=== PATIENT | male | born 1935 | race Caucasian/White ===

== ENCOUNTER → 2016-06-26 | Outpatient (CLI) | payer OTHER ==
[~2016-06-26] MED LIST: AMITRIPTYLINE H50 MG PO; AMITRYPTYLINE PO; ASPIRIN PO; COUMADIN PO; COUMADIN5 MG PO; GABAPENTIN300 M2 PO; LISINOPRIL PO; LOVENOX SUBQ; METOPROLOL TAR100 MG PO; MULTI VITAMIN1 EACH PO; MULTI-DAY VITAM1 TAB PO; PANTOPRAZOLE SO40 MG PO; SENNA PO; SIMVASTATIN40 MG PO; TOPROL XL PO; WALMART PHARMACY; ZOCOR PO
--- NOTE | ~2016-06-26 | CT57 ---
[facility] A Service of [facility] & [facility] RADIOLOGY TEXT RESULTS PATIENT: ARISTIDES ENRIQUE LOCATION: [facility] : 39 UNIT #: [id number] AGE: [address]: VONDA LOPEZ MD SEX: M ORDER DR: [id number] [address] [address] [id number] O MR#: [id number] Acc #: [id number] NAME: ARISTIDES ENRIQUE : 1935 SEX: M STUDY DATE/TIME: 06/26/2016 12:23 UNIT: [facility] ROOM: STUDY DESCRIPTION: CT Chest Wo Cont Attending Physician: Shi Lopez M.D. Referring Physician: Shi Lopez M.D. Ordering Physician: Shi Lopez M.D. Primary Care Physician: Shi Lopez M.D. MEDICAL IMAGING REPORT This report is preliminary unless electronic signature is present. EXAM CT chest without contrast 06/26/2016 INDICATIONS 80-year-old male with followup of lung nodule. TECHNIQUE CT of the chest was performed without contrast. Coronal and sagittal reformatted images were obtained. This CT exam was performed with one or more of the following radiation dose reduction techniques: automatic exposure control, adjustment of mA and/or kV according to patient size, and iterative reconstruction. COMPARISON STUDIES Comparison with outside chest CT from 11/18/2015 FINDINGS Stable biapical scarring. Stable scarring in the upper lobes elsewhere, left greater than right. There is multifocal tree-in-bud nodularity. This is greatest within the right lung and is worse compared with the prior study. There is no dense consolidation. There are mildly enlarged mediastinal lymph nodes which are likely reactive. No pleural effusion. Coronary artery calcifications. Small hiatal hernia. Limited imaging of the upper abdomen demonstrates cholecystectomy. The bone windows are unremarkable. IMPRESSION 1. There has been development of multifocal tree-in-bud nodularity mainly within the right lung. This suggests infectious or inflammatory small airways disease process. Recommend follow up chest CT in 2-3 months to document clearing. 2. Elsewhere in the lungs there is stable areas of scarring. STS. [facility] A Service of [facility] & [facility] RADIOLOGY TEXT RESULTS PATIENT: ARISTIDES ENRIQUE LOCATION: [facility] : 37 UNIT #: [id number] AGE: [address]: VONDA LOPEZ MD SEX: M ORDER DR: 3. Small hiatal hernia. 4. Mildly prominent mediastinal lymph nodes which are likely reactive. Dictated by... Red Santos M.D. THIS IS AN ELECTRONICALLY VERIFIED REPORT Red Santos M.D. at 06/26/2016 5:03 PM Lázaro TD: 06/26/2016 15:24 JOB #: [id number] MEDICAL IMAGING REPORT Page 1 of 1
== END | disposition home or self-care (01) ==
LOC: SCT 12:01
DX: R91.8 Other nonspecific abnormal finding of lung field (principal); J98.4 Other disorders of lung; K44.9 Diaphragmatic hernia without obstruction or gangrene
CPT/HCPCS: 71250

== ENCOUNTER → 2016-08-18 | Outpatient (CLI) | payer OTHER ==
--- NOTE | ~2016-08-18 | CT57 ---
[facility] A Service of [facility] & [facility] RADIOLOGY TEXT RESULTS PATIENT: ARISTIDES ENRIQUE LOCATION: [facility] : 37 UNIT #: [id number] AGE: [address]: VONDA LOPEZ MD SEX: M ORDER DR: [id number] [address] [address] [id number] O MR#: [id number] Acc #: [id number] NAME: ARISTIDES ENRIQUE : 1935 SEX: M STUDY DATE/TIME: 08/18/2016 11:20 UNIT: [facility] ROOM: STUDY DESCRIPTION: CT Chest Wo Cont Attending Physician: Shi Lopez M.D. Referring Physician: Shi Lopez M.D. Ordering Physician: Shi Lopez M.D. Primary Care Physician: Shi Lopez M.D. MEDICAL IMAGING REPORT This report is preliminary unless electronic signature is present. EXAM CT chest without contrast, 08/18/2016. HISTORY 80-year-old male for followup abnormal CT performed June 2016. Nodularity on the right lung. COMPARISON CT chest without contrast 06/26/2016, 02/05/2006. CT chest with contrast performed at [facility], 11/18/2015. PROCEDURE 5-mm noncontrast axial images through the chest. Sagittal and coronal reformatted images were obtained. This CT exam was performed with one or more of the following radiation dose reduction techniques: automatic exposure control, adjustment of mA and/or kV according to patient size, and iterative reconstruction. FINDINGS Extensive tree-in-bud nodular densities are scattered throughout the right lung, greatest within the right upper lobe inferiorly. Overall, findings appear improved, particularly within the right lower lobe, compared to the 06/26/2016 examination. A new 8-mm nodular density has developed in the anteroinferior right lower lobe (series 5, image 26), favored to represent benign infectious or inflammatory etiology. Emphysematous changes are present. Chronic biapical scarring unchanged. Prominent mediastinal lymph nodes, including an upper pretracheal node measuring 1 cm short axis, right lower paratracheal node measuring approximately 1.3 cm short axis, appears very similar to the outside CT from 11/18/2015, and benign reactive inflammatory changes are favored. STS. [facility] A Service of [facility] & [facility] RADIOLOGY TEXT RESULTS PATIENT: ARISTIDES ENRIQUE LOCATION: [facility] : 39 UNIT #: [id number] AGE: [address]: VONDA LOPEZ MD SEX: M ORDER DR: Mild coronary artery calcifications are present. There is a patulous lower thoracic esophagus, with surgical changes at the esophagogastric junction. Cholecystectomy. No pericardial effusion or pleural effusion. Small midline upper abdominal hernia containing only omental fat. Tiny nonobstructing bilateral renal stones. Mild chronic-appearing compression deformity of L1. IMPRESSION 1. Diffuse tree-in-bud nodular densities are scattered within the right lung and appear improved, particularly within the superior segment right lower lobe, compared to the previous CT from 06/26/2016. A new 8-mm nodule has developed in the anteroinferior right upper lobe. Benign infectious or inflammatory etiology is once again favored. Findings could represent changes of small airways infectious or inflammatory change/bronchitis. Certainly, microaspiration could give a similar appearance, as well. Consider additional CT chest followup within 4-6 months. 2. Emphysematous changes with stable biapical scarring. 3. Mildly prominent mediastinal lymph nodes appear stable since the outside CT chest from 11/18/2015, favoring benign and benign reactive adenopathy is favored. 4. Surgical changes of the stomach, cholecystectomy. 5. Ventral hernia containing only omental fat. 6. Nonobstructing bilateral renal stones. 7. Mild chronic L1 compression deformity. Dictated by... Ashley Reese M.D. THIS IS AN ELECTRONICALLY VERIFIED REPORT Ashley Reese M.D. at 08/19/2016 9:41 AM JULITO/luisito TD: 08/18/2016 15:42 JOB #: [id number] MEDICAL IMAGING REPORT Page 1 of 1
== END | disposition home or self-care (01) ==
LOC: SCT 11:03
DX: R91.8 Other nonspecific abnormal finding of lung field (principal); J98.4 Other disorders of lung; R91.1 Solitary pulmonary nodule; K43.9 Ventral hernia without obstruction or gangrene; N20.0 Calculus of kidney; G95.20 Unspecified cord compression; Z90.49 Acquired absence of other specified parts of digestive tract; Z98.890 Other specified postprocedural states
CPT/HCPCS: 71250

== ENCOUNTER → 2016-12-23 | Outpatient (CLI) | payer MEDICARE ==
--- NOTE | ~2016-12-23 | CT57 ---
[facility]. [facility] A Service of [facility] & [facility] RADIOLOGY TEXT RESULTS PATIENT: ARISTIDES ENRIQUE LOCATION: [facility] : 39 UNIT #: [id number] AGE: [address]: VONDA LOPEZ MD SEX: M ORDER DR: [id number] [address] [address] [id number] O MR#: [id number] Acc #: [id number] NAME: ARISTIDES ENRIQUE : 1935 SEX: M STUDY DATE/TIME: 12/23/2016 8:01 UNIT: [facility] ROOM: STUDY DESCRIPTION: CT Chest Wo Cont Attending Physician: Vonda Lopez M.D. Referring Physician: Vonda Lopez M.D. Ordering Physician: Shi Lopez M.D. Primary Care Physician: Vonda Lopez M.D. MEDICAL IMAGING REPORT This report is preliminary unless electronic signature is present. EXAM CT of the chest without contrast. INDICATIONS Follow up 8 mm nodule right upper lobe. TECHNIQUE CT chest performed without contrast. Coronal and sagittal reformatted images were obtained. This CT exam was performed with one or more of the following radiation dose reduction techniques: Automatic exposure control, adjustment of mA and/or kV according to patient size, and iterative reconstruction. COMPARISON 08/18/2016. FINDINGS The previously noted 8 mm nodule is no longer present. However there are multiple additional nodules present, mainly in a tree-in-bud configuration located within the right upper lobe which has developed since the previous study. Stable biapical scarring. Stable linear scarring or atelectasis in the periphery of the left upper lobe. Stable micronodule left lower lobe on image 44. New scattered tree-in-bud nodularity in the right lower lobe as well as a right middle lobe. Stable mildly prominent mediastinal lymph nodes. Small hiatal hernia. Coronary artery calcification. No pleural effusion. Limited imaging in the upper abdomen shows scattered tiny nonobstructing stones in the visualized portion of the right kidney. Bone windows are unremarkable. IMPRESSION 1. The previously noted 8 mm nodule in the right upper lobe has resolved. 2. There has been interval development of multifocal tree-in-bud nodularity in the right lung mainly within the right upper lobe and STS. [facility] A Service of [facility] RADIOLOGY TEXT RESULTS PATIENT: ARISTIDES ENRIQUE LOCATION: [facility] : 39 UNIT #: [id number] AGE: [address]: VONDA LOPEZ MD SEX: M ORDER DR: the findings are most suggestive of an infectious or inflammatory process. Short-interval followup to clearing is recommended. This could be performed in 2-3 months to document clearing. Dictated by... Red Santos M.D. THIS IS AN ELECTRONICALLY VERIFIED REPORT Red Santos M.D. at 12/24/2016 2:47 PM REINIER/shagufta TD: 12/23/2016 09:56 JOB #: [id number] MEDICAL IMAGING REPORT Page 1 of 1
== END | disposition home or self-care (01) ==
LOC: SCT 07:46
DX: R91.8 Other nonspecific abnormal finding of lung field (principal)
CPT/HCPCS: 71250